=== PATIENT | male | born 1975 | race Caucasian/White ===

== ENCOUNTER 2020-10-21 16:10 | Emergency (ER) | payer OTHER ==
[2020-10-21 16:24] VITALS: BP 136/85; PULSE 84; TEMP 98.4; BMI 32.3
== END 2020-10-21 18:55 | disposition home or self-care (01) ==
LOC: JER 16:10
DX: H05.222 Edema of left orbit (principal); S09.93XA Unspecified injury of face, initial encounter
CPT/HCPCS: 70450-TC; 70486-TC; 99284-25

== ENCOUNTER 2024-11-15 12:15 | Inpatient (IN) | payer OTHER ==
[2024-11-15] MEDS ORDERED: morphine SULFATE 4 MG/ML VIAL ONE ×2 (13:17→17:04)
[2024-11-15 13:21] LABS: ABSOLUTE IMMATURE GRANULOCYTES 0.06 x10^3/uL (0.0-0.031); BASOPHILS # 0.03 x10^3/uL (0.01-0.08); EOSINOPHIL % 0.2 % (0.8-7.0); EOSINOPHILS # 0.02 x10^3/uL (0.04-0.54); HEMATOCRIT 44.1 % (40.1-51.0); MEAN CELL VOLUME 83.5 fl (79.0-92.2); MEAN PLT VOLUME 10.1 fl (9.4-12.4); MONOCYTE # 0.34 x10^3/uL (0.30-0.82); PLATELET COUNT 224 x10^3/uL (163-337); RDW 11.7 % (12.1-15.9)
[2024-11-15] MEDS: morphine CARPU-JECT 4 MG/1 ML DISP.SYRIN IVPUSH ONE ×2 (13:24→17:07)
[2024-11-15 13:31] LABS: INR 0.95 (0.83-1.09); PROTHROMBIN TIME (PATIENT) 10.4 SEC (9.7-13.0)
[2024-11-15 13:34] LABS: ACTIVATED PTT 28.1 SECONDS (25.2-36.5)
[2024-11-15 13:42] LABS: POTASSIUM 3.9 mmol/L (3.5-5.1)
[2024-11-15 13:44] LABS: CALCIUM 9.7 mg/dL (8.5-10.1)
[2024-11-15 13:45] LABS: ALBUMIN 4.5 g/dl (3.4-5.0); BLOOD UREA NITROGEN 16.4 mg/dL (7-18)
[2024-11-15 13:48] LABS: CREATININE 0.8 mg/dL (0.55-1.3)
[2024-11-15 13:49] LABS: BILIRUBIN,TOTAL 0.6 mg/dL (0.2-1); TOT PROT 7.8 g/dl (6.4-8.2)
[2024-11-15 14:06] LABS: PH,URINE 5.5 (5.0-8.0); URINE APPEARANCE CLEAR; URINE BILIRUBIN NEGATIVE (NEGATIVE); URINE COLOR YELLOW; URINE GLUCOSE (UA) 3+ (NEGATIVE); URINE KETONE TRACE (NEGATIVE); URINE LEUK ESTERASE NEGATIVE (NEGATIVE); URINE NITRITE NEGATIVE (NEGATIVE); URINE PROTEIN NEGATIVE (NEGATIVE); URINE UROBILINOGEN 0.2 mg/dL (0.2-1.0)
[2024-11-15] MEDS ORDERED: LIDOCAINE 5% TOPICAL PATCH ONE (17:45)
[2024-11-15] MEDS: LIDOCAINE 4% PATCH TP ONE (17:49)
[2024-11-15] MEDS ORDERED: KETOROLAC TROMETHAMINE 30 MG/1 ML VIAL ONE (20:43)
[2024-11-15] MEDS ORDERED: ACETAMINOPHEN INJECTION 100 ML ONE (20:43)
[2024-11-15] MEDS: KETOROLAC TROMETHAMINE 30 MG/1 ML VIAL IVPUSH ONE (20:51)
[2024-11-15] MEDS: ACETAMINOPHEN 1000 MG/100 ML BAG IVPB SCH (20:51)
[2024-11-15] MEDS: SODIUM CHLORIDE 1,000 ML IV SCH (21:10)
[2024-11-15] MEDS: KETOROLAC TROMETHAMINE 30 MG/1 ML VIAL IVPUSH SCH (22:23)
[2024-11-15] MEDS: oxyCODONE HCL 5 MG TABLET PO PRN (22:55)
[2024-11-16 00:23] LABS: HCV DIAGNOSTIC IN-HOUSE W/RFLX NON-REACTIVE (NONREACTIVE)
[2024-11-16 00:25] LABS: HIV INTERPRETATION NEGATIVE (NEGATIVE)
[2024-11-16 04:57] VITALS: BMI 23.8
[2024-11-16 05:21] VITALS: RESP 18
[2024-11-16] MEDS: INSULIN ASPART SLIDING SCALE (NOVOLOG) 1 VIAL SQ SCH (07:35)
[2024-11-16 08:27] LABS: MCHC 34.1 g/dl (32.3-36.5); MEAN CELL VOLUME 82.5 fl (79.0-92.2); PLATELET COUNT 200 x10^3/uL (163-337); RDW 11.9 % (12.1-15.9)
[2024-11-16 08:44] LABS: POTASSIUM 3.7 mmol/L (3.5-5.1)
[2024-11-16 08:54] LABS: BLOOD UREA NITROGEN 19.3 mg/dL (7-18); CALCIUM 8.6 mg/dL (8.5-10.1)
[2024-11-16 08:57] LABS: CREATININE 0.7 mg/dL (0.55-1.3)
[2024-11-16 08:58] LABS: BILIRUBIN,TOTAL 0.8 mg/dL (0.2-1); TOT PROT 6.2 g/dl (6.4-8.2)
[2024-11-16 08:59] LABS: ALBUMIN 3.6 g/dl (3.4-5.0)
[2024-11-16] MEDS: INSULIN GLARGINE (LANTUS) 100 UNITS/ML UNITS SQ SCH (21:09)
[2024-11-16] MEDS: HYDROmorphone HCL CARPU-JECT 2 MG/1 ML DISP.SYRIN IVPUSH PRN (21:17)
[2024-11-17 08:16] LABS: ABSOLUTE IMMATURE GRANULOCYTES 0.01 x10^3/uL (0.0-0.031); BASOPHILS # 0.02 x10^3/uL (0.01-0.08); EOSINOPHIL % 3.3 % (0.8-7.0); EOSINOPHILS # 0.15 x10^3/uL (0.04-0.54); HEMATOCRIT 40.8 % (40.1-51.0); HEMOGLOBIN 13.8 g/dL (13.7-17.5); MCHC 33.8 g/dl (32.3-36.5); MEAN CELL VOLUME 82.9 fl (79.0-92.2); MEAN PLT VOLUME 10.2 fl (9.4-12.4); MONOCYTE # 0.39 x10^3/uL (0.30-0.82); MONOCYTE % 8.5 % (5.3-12.2); PLATELET COUNT 206 x10^3/uL (163-337); RDW 11.9 % (12.1-15.9)
[2024-11-17 09:04] LABS: POTASSIUM 3.8 mmol/L (3.5-5.1)
[2024-11-17 09:16] LABS: ALBUMIN 3.4 g/dl (3.4-5.0); BILIRUBIN,TOTAL 0.4 mg/dL (0.2-1); BLOOD UREA NITROGEN 19.5 mg/dL (7-18); CALCIUM 8.7 mg/dL (8.5-10.1); MAGNESIUM 2.2 mg/dL (1.8-2.4); TOT PROT 6.2 g/dl (6.4-8.2)
[2024-11-17 09:19] LABS: CREATININE 0.6 mg/dL (0.55-1.3); PHOSPHOROUS 2.9 mg/dL (2.5-4.9)
[2024-11-17 15:22] VITALS: BP 138/89; PULSE 82; TEMP 98.1
[2024-11-17] MEDS: ACETAMINOPHEN 1000 MG/100 ML BAG IVPB SCH (16:12)
== END 2024-11-17 18:20 | disposition home or self-care (01) | DRG 347 ==
LOC: JER 12:15 → JERBED 19:05 → J6S 22:38
PROVIDERS: ADMIT Hospitalist; ATTEND Internal Medicine
DX: S22.089A Unspecified fracture of T11-T12 vertebra, initial encounter for closed fracture (principal); S32.019A Unspecified fracture of first lumbar vertebra, initial encounter for closed fracture; E11.9 Type 2 diabetes mellitus without complications; E87.1 Hypo-osmolality and hyponatremia; E11.65 Type 2 diabetes mellitus with hyperglycemia; W17.89XA Other fall from one level to another, initial encounter; Y93.89 Activity, other specified; Y92.89 Other specified places as the place of occurrence of the external cause; Y99.8 Other external cause status; M48.061 Spinal stenosis, lumbar region without neurogenic claudication
CPT/HCPCS: 36415; 71046-TC-FY; 71260-TC; 72128-TC; 72131-TC; 72146-TC; 72148-TC; 72170-TC-FY; 74177-TC; 80053; 81003; 82962; 83036; 83735; 84100; 85025; 85027; 85610; 85730; 86803; 86850; 86900; 86901; 87086; 87389; 93005; 93010; 97116-GP; 97162-GP; 99285-25; J0131; Q9967